=== PATIENT | female | born 1995 | race Two or more races ===

== ENCOUNTER → 2021-09-15 | Emergency (ER) | payer OTHER ==
[~2021-09-15] VITALS: Ht 175.3 cm; Wt 68.0 kg
== END | disposition home or self-care (01) ==
LOC: ER 10:54
DX: S61.216A Laceration without foreign body of right little finger without damage to nail, initial encounter (principal); W45.8XXA Other foreign body or object entering through skin, initial encounter; Y93.89 Activity, other specified; Y92.89 Other specified places as the place of occurrence of the external cause; Y99.8 Other external cause status